=== PATIENT | female | born 1960 | race Caucasian/White ===

== ENCOUNTER 2021-03-15 11:34 | Emergency (ER) | payer MEDICAID ==
[~2021-03-15] VITALS: Ht 165.1 cm; Wt 78.0 kg
[2021-03-15 11:39] VITALS: BP 163/102
[2021-03-15] MEDS ORDERED: BENZ-16 MT (14:44)
[2021-03-15] MEDS ORDERED: ALBU6.7H9 INH (14:44)
== END 2021-03-15 15:04 | disposition home or self-care (01) ==
LOC: ER 11:34
DX: R05.9 Cough, unspecified (principal)
CPT/HCPCS: 71045; 99283

== ENCOUNTER 2022-09-21 01:33 | Emergency (ER) | payer MEDICAID ==
[~2022-09-21] VITALS: Ht 162.6 cm; Wt 64.0 kg
[~2022-09-21 01:33] MED LIST: ALBU6.7H3 INH; BENZ-16 MT
[2022-09-21 01:51] VITALS: BP 138/83
[2022-09-21] MEDS ORDERED: IBUPROFEN 600MG TABLET PO ONE (05:45)
[2022-09-21] MEDS ORDERED: AMOX1TAB16 MT (06:39)
[2022-09-21] MEDS ORDERED: IBUP-2029 MT (06:39)
== END 2022-09-21 07:08 | disposition home or self-care (01) ==
LOC: ER 02:13
DX: S02.401A Maxillary fracture, unspecified side, initial encounter for closed fracture (principal); S80.212A Abrasion, left knee, initial encounter; W18.30XA Fall on same level, unspecified, initial encounter; Y93.89 Activity, other specified; Y92.89 Other specified places as the place of occurrence of the external cause; Y99.8 Other external cause status
CPT/HCPCS: 70486; 99284

== ENCOUNTER 2022-10-25 12:00 | Emergency (ER) | payer MEDICAID ==
[~2022-10-25] VITALS: Ht 162.6 cm; Wt 57.0 kg
[~2022-10-25 12:00] MED LIST changes: +AMOX1TAB16 MT; +IBUP-2029 MT
[2022-10-25 12:09] VITALS: BP 122/77; PULSE 20; RESP 20; TEMP 98.7; O2SAT 98
[2022-10-25] MEDS ORDERED: DOXY-456 MT (13:33)
[2022-10-25] MEDS ORDERED: NAPR-681 PO (13:33)
[2022-10-25] MEDS ORDERED: NYST15CR37 TP (13:33)
== END 2022-10-25 13:53 | disposition home or self-care (01) ==
LOC: ER 12:00
DX: T20.02XA Burn of unspecified degree of lip(s), initial encounter (principal); X12.XXXA Contact with other hot fluids, initial encounter; Y93.89 Activity, other specified; Y92.89 Other specified places as the place of occurrence of the external cause; Y99.8 Other external cause status
CPT/HCPCS: 99283

== ENCOUNTER 2022-11-09 14:33 | Emergency (ER) | payer MEDICAID ==
[~2022-11-09] VITALS: Ht 165.1 cm; Wt 58.0 kg
[~2022-11-09 14:33] MED LIST changes: +DOXY-456 MT; +NAPR-681 PO; +NYST15CR37 TP
[2022-11-09 14:40] VITALS: BP 116/74; RESP 16; TEMP 98.7; O2SAT 98
[2022-11-09 14:46] VITALS: PULSE 105
[2022-11-09] MEDS ORDERED: BO1 TP (14:47)
== END 2022-11-09 15:03 | disposition home or self-care (01) ==
LOC: ER 14:33
DX: T20.02XA Burn of unspecified degree of lip(s), initial encounter (principal); T79.9XXA Unspecified early complication of trauma, initial encounter; X08.8XXA Exposure to other specified smoke, fire and flames, initial encounter; Y93.89 Activity, other specified; Y92.89 Other specified places as the place of occurrence of the external cause; Y99.8 Other external cause status
CPT/HCPCS: 99282

== ENCOUNTER 2023-04-05 17:51 | Emergency (ER) | payer MEDICAID, OTHER ==
[~2023-04-05] VITALS: Ht 165.1 cm; Wt 64.0 kg
[~2023-04-05 17:51] MED LIST changes: +BO1 TP; +MUPI15CR11 TP
[2023-04-05 18:02] VITALS: BP 100/76; PULSE 89; RESP 16; TEMP 98.9; O2SAT 98
[2023-04-06] MEDS ORDERED: TOLN30CR17 TP (01:34)
== END 2023-04-06 01:47 | disposition home or self-care (01) ==
LOC: ER 17:51
DX: B49 Unspecified mycosis (principal); Z79.899 Other long term (current) drug therapy
CPT/HCPCS: 99281; 99282

== ENCOUNTER 2023-05-23 17:30 | Emergency (ER) | payer MEDICAID ==
[~2023-05-23] VITALS: Ht 165.1 cm; Wt 72.6 kg
[~2023-05-23 17:30] MED LIST changes: +TOLN30CR17 TP
[2023-05-23 17:45] VITALS: BP 143/73; PULSE 91; RESP 16; TEMP 98.4; O2SAT 99
[2023-05-23] MEDS ORDERED: IBUP-2029 MT (20:05)
[2023-05-23] MEDS ORDERED: BO1 TP (20:05)
[2023-05-27] MEDS ORDERED: SULF1TAB48 MT (00:23)
[2023-05-27] MEDS ORDERED: AMOX1TAB16 MT (00:23)
[2023-05-27] MEDS ORDERED: CEPH500T MT (00:27)
== END 2023-05-23 21:16 | disposition home or self-care (01) ==
LOC: ER 17:30
DX: S90.812A Abrasion, left foot, initial encounter (principal); S90.811A Abrasion, right foot, initial encounter; X58.XXXA Exposure to other specified factors, initial encounter; Y93.89 Activity, other specified; Y92.89 Other specified places as the place of occurrence of the external cause; Y99.8 Other external cause status; Z79.899 Other long term (current) drug therapy
CPT/HCPCS: 99281; 99282

== ENCOUNTER 2023-05-30 14:17 | Emergency (ER) | payer MEDICAID ==
[~2023-05-30] VITALS: Ht 165.1 cm; Wt 68.0 kg
[~2023-05-30 14:17] MED LIST changes: +CEPH500T MT; +SULF1TAB48 MT
[2023-05-30 14:29] VITALS: BP 107/68; PULSE 86; RESP 18; TEMP 97.9; O2SAT 96
[2023-05-30] MEDS ORDERED: SULF1TAB48 MT (18:22)
[2023-05-30] MEDS ORDERED: CEPH500C2 MT (18:22)
== END 2023-05-30 19:14 | disposition home or self-care (01) ==
LOC: ER 14:17
DX: L03.116 Cellulitis of left lower limb (principal); Z79.899 Other long term (current) drug therapy
CPT/HCPCS: 93971; 99284

== ENCOUNTER 2023-07-14 21:22 | Emergency (ER) | payer MEDICAID ==
[~2023-07-14] VITALS: Ht 165.1 cm; Wt 66.0 kg
[~2023-07-14 21:22] MED LIST changes: +CEPH500C2 MT
[2023-07-14 21:34] VITALS: O2SAT 99
[2023-07-15] MEDS ORDERED: TETANUS, DIPHTHERIA, PERTUSSIS VAC/PF 0.5ML (>10YR OLD) IM ONE (01:15)
[2023-07-15] MEDS ORDERED: ACETAMINOPHEN 500MG TABLET PO ONE (01:15)
[2023-07-15] MEDS: ACETAMINOPHEN 500MG TABLET PO NR (03:36)
[2023-07-15] MEDS: TETANUS, DIPHTHERIA, PERTUSSIS VAC/PF 0.5ML (>10YR OLD) IM ONE (03:37)
[2023-07-15 03:45] VITALS: BP 159/88; PULSE 81; RESP 14; TEMP 98.4
== END 2023-07-15 03:55 | disposition home or self-care (01) ==
LOC: ER 21:29
DX: S09.90XA Unspecified injury of head, initial encounter (principal); Z79.899 Other long term (current) drug therapy; W18.39XA Other fall on same level, initial encounter; Y93.89 Activity, other specified; Y92.89 Other specified places as the place of occurrence of the external cause; Y99.8 Other external cause status
CPT/HCPCS: 12011; 90471; 90715; 99285

== ENCOUNTER 2023-07-17 14:17 | Emergency (ER) | payer MEDICAID ==
[~2023-07-17] VITALS: Ht 165.1 cm; Wt 63.5 kg
[2023-07-17 14:18] VITALS: PULSE 79
[2023-07-17 14:20] VITALS: BP 132/78; RESP 16; TEMP 98.4; O2SAT 100
== END 2023-07-17 16:51 | disposition home or self-care (01) ==
LOC: ER 14:17
DX: S01.01XD Laceration without foreign body of scalp, subsequent encounter (principal); Z48.00 Encounter for change or removal of nonsurgical wound dressing; Z79.899 Other long term (current) drug therapy; X58.XXXD Exposure to other specified factors, subsequent encounter
CPT/HCPCS: 99281

== ENCOUNTER 2023-08-03 22:52 | Emergency (ER) | payer MEDICAID, OTHER ==
[~2023-08-03] VITALS: Ht 165.1 cm; Wt 68.0 kg
[2023-08-03 23:04] VITALS: O2SAT 100
[2023-08-04 02:28] VITALS: BP 121/63; PULSE 78; RESP 18; TEMP 98.4
== END 2023-08-04 02:31 | disposition home or self-care (01) ==
LOC: ER 22:52
DX: S01.81XD Laceration without foreign body of other part of head, subsequent encounter (principal); Z79.899 Other long term (current) drug therapy; X58.XXXD Exposure to other specified factors, subsequent encounter
CPT/HCPCS: 99281; Z7610 ×4

== ENCOUNTER 2023-08-28 18:58 | Emergency (ER) | payer SELFPAY ==
[~2023-08-28] VITALS: Ht 165.1 cm; Wt 70.3 kg
[2023-08-28 19:42] VITALS: BP 153/71; PULSE 110; RESP 18; TEMP 99.4; O2SAT 99
[2023-08-28] MEDS ORDERED: SULF1TAB48 MT (22:03)
[2023-08-28] MEDS ORDERED: CEPH500T MT (22:03)
== END 2023-08-28 22:31 | disposition home or self-care (01) ==
LOC: ER 18:58
DX: L03.115 Cellulitis of right lower limb (principal)
CPT/HCPCS: 99283

== ENCOUNTER 2023-10-13 19:53 | Emergency (ER) | payer MEDICAID ==
[2023-10-13 20:05] VITALS: PULSE 93
== END 2023-10-13 20:48 | disposition left against medical advice (07) ==
LOC: ER 19:53
DX: R68.89 Other general symptoms and signs (principal); Z53.21 Procedure and treatment not carried out due to patient leaving prior to being seen by health care provider

== ENCOUNTER 2024-07-07 08:52 | Emergency (ER) | payer MEDICAID ==
[~2024-07-07] VITALS: Ht 165.1 cm; Wt 68.0 kg
[~2024-07-07 08:52] MED LIST changes: -DOXY-456 MT; +DOXY100C74 MT
[2024-07-07 08:59] VITALS: TEMP 36.6; O2SAT 99
[2024-07-07] MEDS: IBUPROFEN 600MG TABLET PO ONE (09:23)
[2024-07-07 13:09] VITALS: BP 131/80; PULSE 69; RESP 14; O2SAT 100
== END 2024-07-07 13:22 | disposition home or self-care (01) ==
LOC: ER 08:52
DX: M25.561 Pain in right knee (principal); I83.91 Asymptomatic varicose veins of right lower extremity
CPT/HCPCS: 73562; 93971; 99284

== ENCOUNTER 2025-04-06 06:51 | Emergency (ER) | payer SELFPAY ==
[~2025-04-06] VITALS: Ht 167.6 cm; Wt 75.0 kg
[~2025-04-06 06:51] MED LIST changes: +DOXY-461 MT; -DOXY100C74 MT; +IBUP-1455 MT; -IBUP-2029 MT; +NYST15CR31 TP; -NYST15CR37 TP
[2025-04-06 06:59] VITALS: O2SAT 98
[2025-04-06] MEDS ORDERED: AZIT250T12 MT (09:04)
[2025-04-06 09:15] VITALS: BP 126/81; PULSE 77; RESP 18; TEMP 36.9; O2SAT 99
[2025-04-06 10:51] LABS: INFLUENZA TYPE A Presumptive Negative (Pres. Neg.)
[2025-04-06 10:52] LABS: INFLUENZA TYPE B Presumptive Negative (Pres. Neg.); RESPIRATORY SYNCYTIAL VIRUS Not Detected (Not Detectd)
== END 2025-04-06 09:20 | disposition home or self-care (01) ==
LOC: ER 06:51
DX: R05.9 Cough, unspecified (principal)
CPT/HCPCS: 71045; 87420; 87804; 99284